=== PATIENT | male | born 1975 | race Two or more races ===

== ENCOUNTER 2022-06-07 10:08 | Day surgery (SDC) | payer OTHER ==
[~2022-06-07] VITALS: Ht 172.7 cm; Wt 99.8 kg
[2022-06-07] MEDS ORDERED: MIDAZOLAM 5 MG/5 ML VIAL ONE (13:28)
[2022-06-07] MEDS ORDERED: fentaNYL citrate 0.05 MG/ML VIAL ONE (13:46)
== END 2022-06-07 14:53 | disposition home or self-care (01) ==
LOC: MDS 10:08 → MMU 10:09 → MDS 14:53
PROVIDERS: ATTEND Internal Medicine Gastroenterology
DX: K21.00 Gastro-esophageal reflux disease with esophagitis, without bleeding (principal); R13.10 Dysphagia, unspecified; K29.70 Gastritis, unspecified, without bleeding; F17.210 Nicotine dependence, cigarettes, uncomplicated; I10 Essential (primary) hypertension; Z20.822 Contact with and (suspected) exposure to COVID-19; Z79.899 Other long term (current) drug therapy
CPT/HCPCS: 36415; 43239; 86677; 87426; J2250; J3010